=== PATIENT | female | born 1995 | race African-American/Black ===

== ENCOUNTER 2023-07-14 08:26 | Emergency (ER) | payer OTHER ==
[~2023-07-14] VITALS: Ht 165.1 cm; Wt 77.1 kg
[2023-07-14] MEDS ORDERED: FAMO-131 PO (08:56)
[2023-07-14] MEDS ORDERED: PRED20TA PO (08:56)
[2023-07-14] MEDS ORDERED: DOXY100C2 PO (08:56)
[2023-07-14] MEDS ORDERED: GLY/480L3 TP (08:56)
[2023-07-14] MEDS ORDERED: DIPH25CA83 PO (08:56)
[2023-07-14] MEDS: IV NS 0.9% 1,000 ML BAG IV ONE (09:00)
[2023-07-14] MEDS ORDERED: diphenhydrAMINE HCL 50 MG/ML VIAL ONE (09:03)
[2023-07-14] MEDS ORDERED: methylPREDNISolone SOD SUCC 125 MG/2ML VIAL ONE (09:03)
[2023-07-14] MEDS ORDERED: FAMOTIDINE/PF INJ 20 MG/2 ML VIAL IV ONE (09:04)
[2023-07-14] MEDS: diphenhydrAMINE HCL 50 MG/ML VIAL IV ONE (09:05)
[2023-07-14] MEDS: FAMOTIDINE/PF INJ 20 MG/2 ML VIAL IV ONE (09:07)
[2023-07-14] MEDS: methylPREDNISolone SOD SUCC 125 MG/2ML VIAL IV ONE (09:10)
[2023-07-14 09:54] VITALS: BP 126/85; TEMP 98.2; O2SAT 98
== END 2023-07-14 10:03 | disposition home or self-care (01) ==
LOC: ER 08:37
DX: R21 Rash and other nonspecific skin eruption (principal); L30.9 Dermatitis, unspecified; J45.909 Unspecified asthma, uncomplicated
CPT/HCPCS: 99284; 96374; 96361; 96375; J1200; J3490; J2930; J7030